=== PATIENT | female | born 1960 | race Caucasian/White ===

== ENCOUNTER 2016-09-27 06:00 | Day surgery (SDC) | payer OTHER ==
[~2016-09-27] VITALS: Ht 160 cm; Wt 88.0 kg
[2016-09-27] MEDS ORDERED: CEFAZOLIN SOD 1 GM/ ISO 50 ML PREMIX IV ONE (07:00)
[2016-09-27] MEDS ORDERED: ceFAZolin SODIUM 1 GM VIAL ONE (07:18)
[2016-09-27] MEDS ORDERED: CEFAZOLIN 1 GM IVPB PREMIX 50 ML IV ONE (07:19)
[2016-09-27] MEDS ORDERED: IOHEXOL 50 ML IV ONE (07:52)
[2016-09-27] MEDS ORDERED: LR 1,000 ML IV SCH (08:19)
[2016-09-27] MEDS ORDERED: MEPERIDINE HCL/PF 25 MG/ML DISP.SYRIN IVP PRN (08:30)
[2016-09-27] MEDS ORDERED: HYDROmorphone 2 MG/ML VIAL IVP PRN ×2 (08:30)
[2016-09-27] MEDS ORDERED: HYDROmorphone 1 MG INJ. 1 MG/ML AMPUL IVP PRN ×2 (08:30→09:00)
[2016-09-27] MEDS ORDERED: HYDROcodone/ACETAMIN 5-325 MG TAB (NORCO/ VICODIN) PO PRN ×2 (09:00)
[2016-09-27 10:02] VITALS: BP_SYST 109
[2016-09-27] MEDS ORDERED: HYDROcodone/ACETAMIN 5-325 MG TAB (NORCO/ VICODIN) ONE (10:22)
[2016-09-27] MEDS ORDERED: D5/0.45 NS 1,000 ML IV SCH (12:00)
== END 2016-09-27 11:20 | disposition home or self-care (01) ==
LOC: SDS 06:00 → SMU 06:00 → SDS 11:20
PROVIDERS: ATTEND Colon & Rectal Surgery
DX: K80.10 Calculus of gallbladder with chronic cholecystitis without obstruction (principal); E78.5 Hyperlipidemia, unspecified; E66.9 Obesity, unspecified
CPT/HCPCS: 47563; 76000; 88304; J0690 ×2; J7120; Q9967; C1727; C1758

== ENCOUNTER 2022-01-25 06:00 | Day surgery (SDC) | payer OTHER ==
[~2022-01-25] VITALS: Ht 160 cm; Wt 80.7 kg
[2022-01-25] MEDS ORDERED: MEPERIDINE 100 MG INJ. 100 MG/ML VIAL ONE (12:39)
[2022-01-25] MEDS ORDERED: MIDAZOLAM HCL 5 MG/5 ML VIAL ONE (12:40)
[2022-01-25 12:44] VITALS: BP_SYST 106
== END 2022-01-25 08:45 | disposition home or self-care (01) ==
LOC: SMU 06:00 → SDS 06:00
PROVIDERS: ATTEND Colon & Rectal Surgery
DX: Z12.11 Encounter for screening for malignant neoplasm of colon (principal); Z20.822 Contact with and (suspected) exposure to COVID-19
CPT/HCPCS: 36415 ×2; 45378; 87426; 99153; 99152; U0003; G0378; J2250; J2175